=== PATIENT | male | born 1965 | race Caucasian/White ===

== ENCOUNTER 2024-02-20 12:56 | Emergency (ER) | payer BC ==
[2024-02-20 13:12] VITALS: BP 115/70; O2SAT 98
--- NOTE | 2024-02-20 13:18 | ED Physician Documentation ---
History of Present Illness - Stated complaint Stated Complaint: BEE STING, RT HAND SWELLING - Chief complaint Chief Complaint: Allergic Rx - History obtained from History obtained from: Patient - Additonal information Additional information: 58-year-old gentleman was stung to the right palm by a bee 2 days ago. Has persistent but waxing and waning swelling and itchiness in the area with redness. There is no pain or fever. PD PAST MEDICAL HISTORY - Past Medical History Past Medical History: Yes - Past Surgical History Past Surgical History: Yes HEENT: Detached retina repair - Present Medications Home Medications: Ambulatory Orders Medication Instructions Recorded Confirmed Travoprost [Travatan Z] 1 drops RIGHTEYE HS 02/20/24 02/20/24 - Allergies Allergies/Adverse Reactions: Allergies Allergy/AdvReac Type Severity Reaction Status Date / Time bee venom protein (honey bee) Allergy Hives Verified 02/20/24 13:07 Sulfa (Sulfonamide Allergy Hives Verified 02/20/24 13:07 Antibiotics) - Social History Does the pt smoke?: No Smoking Status: Never smoker Does the pt drink ETOH?: Yes Does the pt have substance abuse?: No PD ED PE NORMAL - Vitals Vital signs reviewed: Yes - General General: Alert and oriented X 3, No acute distress - Extremities Extremities: Other (Mild redness and swelling of the entirety of the right hand to the wrist. Full range of motion.) - Neuro Neuro: Alert and oriented X 3, Normal speech Results - Vitals Vitals: Vital Signs - 24 hr 02/20/24 13:01 Temperature 36.3 C L Heart Rate 54 L Respiratory 18 Rate Blood Pressure 115/70 O2 Saturation 98 Oxygen O2 Source Room air PD Medical Decision Making - ED course ED course: Symptomatology and examination would be more consistent with a localized allergic reaction than a cellulitis. He is given a dose of Decadron with close return precautions. Departure - Departure Disposition: 01 Home, Self Care Clinical Impression: Bee sting Qualifiers: Encounter type: initial encounter Injury intent: accidental or unintentional Qualified Code(s): T63.441A - Toxic effect of venom of bees, accidental (unintentional), initial encounter Condition: Good Record reviewed to determine appropriate education?: Yes Instructions: ED Allergic Reaction Local Other Comments: As discussed, at this point it does not seem to be an infection or anything out of sorts. We gave you a long-acting dose of steroid and you can continue the Benadryl. Would also elevate and ice as needed. Return if you worsen especially if you develop significant pain or fevers. Forms: PCP List
[2024-02-20] MEDS: DEXAMETHASONE 10 MG/ML VIAL PO STA (13:22)
[2024-02-20] MEDS: CHERRY SYRUP 10 ML UDC PO ONE (13:23)
== END 2024-02-20 13:27 | disposition home or self-care (01) ==
LOC: ED 12:56
DX: T63.441A Toxic effect of venom of bees, accidental (unintentional), initial encounter (principal); R22.31 Localized swelling, mass and lump, right upper limb; L29.9 Pruritus, unspecified
CPT/HCPCS: 99283; A9270